=== PATIENT | male | born 1985 | race American Indian/Alaskan Native ===

== ENCOUNTER 2017-05-08 15:33 | Emergency (ER) | payer MEDICAID, OTHER ==
[2017-05-08 15:36] VITALS: BMI 21.4
[2017-05-08] MEDS ORDERED: Lidocaine 1% Inj (20ml) ONE (15:47)
[2017-05-08 15:57] VITALS: BP 129/91; PULSE 83; RESP 16; TEMP 98.5; O2SAT 98
[2017-05-08] MEDS ORDERED: Tmp-Smz 800 mg-160 mg DS Tab PO STA (16:13)
--- NOTE | 2017-05-08 16:17 | ED PDOC ---
Arrival/HPI - General Chief Complaint: ENT Problem Time Seen by Provider: 05/08/17 15:35 Historian: Patient - History of Present Illness Narrative History of Present Illness (Text): 05/08/17 16:00 This 32 yo male presents to this ED c/o left earlobe FB x 4 weeks. Patient stated part left ear lobe earring is stuck in soft tissue. Patient has noticed discharge,and swelling x 3 days. Denies other complains. Time/Duration: Prior to Arrival Context: Home Past Medical History - Provider Review Nursing Documentation Reviewed: Yes - Past History Past History: No Previous - Infectious Disease Hx of Infectious Diseases: None - Tetanus Immunization Tetanus Immunization: Unknown - Past Medical History Past Medical History: No Previous - Cardiac Hx Cardiac Disorders: No - Pulmonary Hx Respiratory Disorders: No - Neurological Hx Neurological Disorder: No - HEENT Hx HEENT Disorder: No - Renal Hx Renal Disorder: No - Endocrine/Metabolic Hx Endocrine Disorders: No - Hematological/Oncological Hx Blood Disorders: No - Integumentary Hx Dermatological Disorder: No - Musculoskeletal/Rheumatological Hx Musculoskeletal Disorders: No - Gastrointestinal Hx Gastrointestinal Disorders: No - Genitourinary/Gynecological Hx Genitourinary Disorders: No - Psychiatric Hx Depression: No Hx Emotional Abuse: No Hx Physical Abuse: No Hx Substance Use: No - Past Surgical History Past Surgical History: No Previous - Anesthesia Hx Anesthesia: No - Suicidal Assessment Feels Threatened In Home Enviroment: No Family/Social History - Physician Review Nursing Documentation Reviewed: Yes Family/Social History: Other (non-contributory) Smoking Status: Light Smoker < 10 Cigarettes Daily Hx Alcohol Use: Yes Hx Substance Use: No Hx Substance Use Treatment: No Allergies/Home Meds Allergies/Adverse Reactions: Allergies No Known Allergies Allergy (Verified 04/09/16 13:42) Home Medications: Home Meds Medication Instructions Recorded Confirmed Ibuprofen 400 mg PO Q6 PRN 05/08/17 05/08/17 Review of Systems - Review of Systems Constitutional: Normal. absent: Fatigue, Weight Change, Fevers Eyes: Normal ENT: Other (see hpi) Respiratory: Normal. absent: SOB, Cough Cardiovascular: Normal. absent: Chest Pain, Palpitations Gastrointestinal: Normal. absent: Abdominal Pain, Nausea, Vomiting Genitourinary Male: Normal Musculoskeletal: Normal Skin: Abscess (see hpi). absent: Rash, Pruritis Neurological: Normal. absent: Headache, Dizziness Endocrine: Normal Hemo/Lymphatic: Normal Psychiatric: Normal Physical Exam Vital Signs Temp Pulse Resp BP Pulse Ox 05/08/17 15:38 98.5 F 83 16 129/91 H 98 Temperature: Afebrile Blood Pressure: Normal Pulse: Regular Respiratory Rate: Normal Appearance: Positive for: Well-Appearing, Non-Toxic, Comfortable Pain Distress: None Mental Status: Positive for: Alert and Oriented X 3 - Systems Exam Head: Present: Atraumatic, Normocephalic Pupils: Present: PERRL Extroacular Muscles: Present: EOMI Conjunctiva: Present: Normal Ears: Present: NORMAL TM, Normal Canal, Other ((+) Left ear lobe appears swollen. Posterior part of earring is embedded in soft tissue of left ear lobe with trace discharge). No: Erythema, TM Bulging, Fluid, TM Perf Mouth: Present: Moist Mucous Membranes Neck: Present: Normal Range of Motion Back: Present: Normal Inspection Upper Extremity: Present: Normal Inspection, Normal ROM. No: Edema Lower Extremity: Present: Normal Inspection, Normal ROM. No: Edema Neurological: Present: GCS=15, CN II-XII Intact, Speech Normal, Motor Func Grossly Intact, Normal Sensory Function, Normal Cerebellar Funct, Gait Normal Skin: Present: Warm, Dry, Normal Color. No: Rashes Psychiatric: Present: Alert, Oriented x 3, Normal Insight, Normal Concentration Medical Decision Making ED Course and Treatment: 05/08/17 16:19 Re-evaluation. Patient feels better. Discussed results and plan with patient who expresses understanding. All questions answered and there is agreement with the plan to discharge home with instructions. Patient stable for discharge. Return if symptoms persist or worsen. Procedure: Under sterile technique, a local anesthesia Lidocaine without EPi. Approx. 1 cc was administered. Left ear lobe FB was removed without complication. Earring was given to patient. Re-evaluation Time: 16:19 Reassessment Condition: Re-examined, Improved Disposition/Present on Arrival - Present on Arrival Any Indicators Present on Arrival: No History of DVT/PE: No History of Uncontrolled Diabetes: No Urinary Catheter: No History of Decub. Ulcer: No History Surgical Site Infection Following: None - Disposition Have Diagnosis and Disposition been Completed?: Yes Diagnosis: Foreign body (FB) in soft tissue Disposition: HOME/ ROUTINE Disposition Time: 16:22 Patient Plan: Discharge Patient Problems: Current Active Problems Problem Status Onset Foreign body (FB) in soft tissue Acute Condition: GOOD Discharge Instructions (ExitCare): Soft Tissue Foreign Body (ED) Additional Instructions: Call private doctor or clinic for follow up visit in 2-3 days. Take antibiotic as instructed. Return to emergency if symptoms worsen. Prescriptions: Sulfamethoxazole/Trimethoprim [Bactrim DS 800 mg-160 mg] 1 tab PO BID #14 tab Referrals: PCP,NO [Primary Care Provider] - Follow up with primary [facility] [Outside] - Follow up with primary [facility] [Outside] - Follow up with primary
== END 2017-05-08 17:07 | disposition home or self-care (01) ==
LOC: ED 15:33
DX: S00.452A Superficial foreign body of left ear, initial encounter (principal); X58.XXXA Exposure to other specified factors, initial encounter; Y93.89 Activity, other specified; Y92.89 Other specified places as the place of occurrence of the external cause